=== PATIENT | male | born 1980 | race Caucasian/White ===

== ENCOUNTER 2022-05-31 09:28 | Emergency (ER) | payer MEDICARE, OTHER ==
[~2022-05-31] VITALS: Ht 177.8 cm; Wt 65.8 kg
[2022-05-31] MEDS ORDERED: AMAN100T PO (09:35)
[2022-05-31] MEDS ORDERED: MELA5TAB PO (09:35)
[2022-05-31] MEDS ORDERED: ACET-868 PO (09:35)
[2022-05-31] MEDS ORDERED: MIRT-91 PO (09:35)
[2022-05-31] MEDS ORDERED: DOCU-141 PO (09:35)
--- NOTE | 2022-05-31 09:50 | NUR ---
pls call caregiver aaron [phone]
--- NOTE | 2022-05-31 09:56 | NUR ---
BROUGHT IN BY CAREGIVER FOR UNWITNESSED GLF, HIT THE RIGHT SIDE OF THE HEAD ON THE GROUND KO PER PATIENT REPORT Addendum: 05/31/22 at 1034 by DANN PT DENIES ANY PAIN
[2022-05-31 10:42] VITALS: BP 135/77
== END 2022-05-31 10:43 | disposition home or self-care (01) ==
LOC: ER 09:40
DX: R51.9 Headache, unspecified (principal); Z79.899 Other long term (current) drug therapy
CPT/HCPCS: 70450-TC

== ENCOUNTER 2023-04-29 17:01 | Emergency (ER) | payer MEDICARE, OTHER ==
[~2023-04-29] VITALS: Ht 177.8 cm; Wt 64.9 kg
[~2023-04-29 17:01] MED LIST: ACET-868 PO; AMAN100T PO; DOCU-141 PO; MELA5TAB PO; MIRT-91 PO
[2023-04-29 17:08] VITALS: TEMP 98
[2023-04-29 17:30] LABS: BASOPHILS # (AUTO) 0.1 K/uL (0.0-0.2); BASOPHILS % (AUTO) 1.3 % (0.0-2.0); EOSINOPHILS # (AUTO) 0.1 K/uL (0.0-0.7); EOSINOPHILS % (AUTO) 1.3 % (0.0-6.0); HEMATOCRIT 42 % (39-51); HEMOGLOBIN 13.2 g/dL (13.5-17.5); LYMPHOCYTES # (AUTO) 0.8 K/uL (0.8-4.8); LYMPHOCYTES % (AUTO) 15.1 % (20.0-44.0); MEAN CORPUSCULAR HEMOGLOBIN 27 PG (26.0-33.0); MEAN CORPUSCULAR HGB CONC 32 g/dl (31.0-36.0); MEAN CORPUSCULAR VOLUME 85 fL (80-96); MONOCYTES # (AUTO) 0.3 K/uL (0.1-1.30); MONOCYTES % (AUTO) 5.4 % (2.0-12.0); NEUTROPHILS # (AUTO) 4.1 K/uL (1.8-8.9); NEUTROPHILS % (AUTO) 76.9 % (43.0-81.0); PLATELET COUNT (AUTO) 263 K/uL (150-450); RED BLOOD CELL COUNT(AUTO) 4.87 MIL/uL (4.5-6.0); RED CELL DISTRIBUTION WIDTH 14.6 % (11.5-15.0); WHITE BLOOD COUNT (AUTO) 5.4 K/uL (4.3-11.0)
[2023-04-29 17:37] LABS: CARBON DIOXIDE 30 mmol/L (21-32); CHLORIDE 105 mmol/L (98-107); CREATININE 0.8 mg/dL (0.6-1.3); GLUCOSE 83 mg/dL (74-106); SODIUM SERUM 139 mmol/L (136-145); UREA NITROGEN, BLOOD 14 mg/dL (7-18)
[2023-04-29] MEDS ORDERED: ACET-285 PO (17:39)
[2023-04-29] MEDS ORDERED: ZOLP5TAB8 PO (17:39)
[2023-04-29 17:43] LABS: ALANINE AMINOTRANSFERASE 39 U/L (12-78); ALBUMIN 3.7 g/dL (3.4-5.0); ALKALINE PHOSPHATASE 99 U/L (46-116); ASPARTATE AMINOTRANSFERASE 22 U/L (15-37); BILIRUBIN,DIRECT 0.1 mg/dL (0.0-0.2); BILIRUBIN,TOTAL 0.3 mg/dL (0.2-1.0); TOTAL PROTEIN, SERUM 7.6 g/dL (6.4-8.2)
[2023-04-29] MEDS ORDERED: IV NS 0.9% 250 ML IV ONE (17:54)
[2023-04-29] MEDS ORDERED: CT SWABBABLE VALVE TRANS SET 1 EA INFUS.SET MC ONE (17:54)
[2023-04-29] MEDS ORDERED: IOHEXOL-350 100 ML VIAL IV ONE (17:54)
[2023-04-29 18:08] LABS: INR 1.02 (0.91-1.10); PARTIAL THROMBOPLASTIN TIME 30.5 SEC (24.3-34.3); PROTHROMBIN TIME 10.8 SECS (9.2-11.1)
[2023-04-29 19:02] VITALS: BP 111/71; O2SAT 98
[2023-04-29 21:52] LABS: D-DIMER 0.74 mg/L(FEU (0.17-0.50)
== END 2023-04-29 21:45 ==
LOC: ER 17:04
DX: R09.02 Hypoxemia (principal); J69.0 Pneumonitis due to inhalation of food and vomit; Z20.822 Contact with and (suspected) exposure to COVID-19
CPT/HCPCS: 99291; 71275; 71045; 87426; 93005; 87804 ×2; 85025; 80048; 80076; 85378; 36415; 84484; 85730; J7050; Q9967; C9803